=== PATIENT | male | born 2000 | race Caucasian/White ===

== ENCOUNTER 2019-03-22 13:27 | Emergency (ER) | payer OTHER ==
[~2019-03-22] VITALS: Ht 172.7 cm; Wt 87.9 kg
[~2019-03-22 13:27] MED LIST: CIPR500T4 PO; MAG-19 PO; OXYC-279 PO; RANI150T5 PO
[2019-03-22 13:35] VITALS: Ht 172.7 cm; Wt 87.9 kg
[2019-03-22] MEDS ORDERED: KETOROLAC 15 MG INJ IV STA (14:31)
[2019-03-22] MEDS ORDERED: SOD CHLORIDE 0.9% IV STA (14:31)
[2019-03-22] MEDS ORDERED: ONDANSETRON 4 MG INJ IV STA (14:31)
[2019-03-22] MEDS ORDERED: ACETAMINOPHEN 325 MG TAB PO ONE (15:00)
[2019-03-22 18:59] VITALS: BP 130/72; PULSE 89; RESP 18
== END 2019-03-22 19:09 | disposition home or self-care (01) ==
LOC: E/R 13:27
DX: R10.13 Epigastric pain (principal); R11.2 Nausea with vomiting, unspecified
CPT/HCPCS: 36415; 71046; 74176; 80053; 81001; 82550; 83615; 83690; 85025; 96374; 96375; J1885; J2405; J7030; Z7502; Z7610